=== PATIENT | female | born 2000 | race Caucasian/White ===

== ENCOUNTER 2022-03-09 15:41 | Emergency (ER) | payer OTHER ==
[~2022-03-09] VITALS: Ht 157.5 cm; Wt 68.0 kg
[2022-03-09] MEDS ORDERED: AMOCLA875 PO (18:01)
== END 2022-03-09 18:10 | disposition home or self-care (01) ==
LOC: ER 15:41
DX: H66.91 Otitis media, unspecified, right ear (principal); J45.909 Unspecified asthma, uncomplicated; F17.210 Nicotine dependence, cigarettes, uncomplicated; Z91.010 Allergy to peanuts
CPT/HCPCS: A9270